=== PATIENT | male | born 1940 | race Caucasian/White ===

== ENCOUNTER 2017-05-14 15:42 | Inpatient (IN) | payer MEDICARE, BC ==
[2017-05-14 16:07] LABS: #Basophils 0.1 thou/uL (0.0-0.2); #Eosinphils 0.2 thou/uL (0.0-0.7); #Lymphocytes 1.7 thou/uL (1.20-3.40); #Monocytes 0.4 thou/uL (0.11-0.59); %Basophils 0.8 % (0.0-1.0); %Eosinophils 3.3 % (0.0-10.0); %Lymphocytes 26.4 % (21.0-51.0); %Monocytes 6.8 % (0.0-10.0); %Neutrophils 62.6 % (42.0-75.0); Hemoglobin 14.5 g/dL (14.0-18.0); Mean Corpuscular HGB CONC 33.4 g/dL (32.0-36.0); Mean Corpuscular Hemoglobin 30.8 pg (27.0-31.0); Mean Corpuscular Volume 92.2 fl (80.0-94.0); Mean Platelet Volume 6.4 fL (7.4-10.4); Platelet Count 188 thou/uL (130-400); RBC Distribution Width 12.1 % (11.5-14.5); Red Blood Cell (RBC) Count 4.69 mill/uL (4.70-6.10); White Blood Cell (WBC) Count 6.3 thou/uL (4.8-10.8)
[2017-05-14 16:13] LABS: INR-International Normal Ratio 1.1; Prothrombin Time 14.8 SEC (12.0-14.7)
[2017-05-14 16:14] LABS: PTT 31.6 SEC (22.9-36.1)
[2017-05-14] MEDS ORDERED: ISOVUE-370 76%-LOCM 1 ML ONE (16:27)
--- NOTE | 2017-05-14 16:31 | CT ---
CT HEAD WITHOUT CONTRAST: 05/14/17 Multiple axial tomograms obtained through the head without IV enhancement. HISTORY: Stroke alert, slurred speech with left arm weakness. No evidence of mass or hemorrhage. No evidence of acute cortical infarct identified. The ventricles are mildly prominent. Mild chronic ischemic white matter change. IMPRESSION: 1. Mild ventriculomegaly. 2. No evidence of acute infarct. Findings relayed to Dr. Rushing at 3:55 p.m. POS: [facility]
[2017-05-14 16:33] LABS: ALT (SGPT) 11 U/L (8-55); AST (SGOT) 16 U/L (5-34); Albumin 3.9 g/dL (3.4-4.8); Alkaline Phosphatase 83 U/L (40-150); Anion Gap 11 mmol/L (10-20); BUN (Urea Nitrogen) 11 mg/dL (8.4-25.7); Bilirubin, Total 0.4 mg/dL (0.2-1.2); CK (CPK) 104 U/L (30-200); CKMB 2.1 ng/mL (0-6.6); Calc. Creatinine Clearance 0 mL/min (70-130); Calcium 9.3 mg/dL (7.8-10.44); Carbon Dioxide 26 mmol/L (23-31); Chloride 97 mmol/L (98-107); Estimated GFR-MDRD 68; Globulin 2.8 g/dL (2.4-3.5); Glucose 119 mg/dL (83-110); Potassium 4.7 mmol/L (3.5-5.1); Protein, Total 6.7 g/dL (5.8-8.1); Sodium 129 mmol/L (136-145); Troponin I Less than 0.010 ng/mL (< 0.028)
--- NOTE | 2017-05-14 19:09 | CT ---
HEAD CTA WITH 3D RENDERING NECK CTA WITH 3D RENDERIN05/14/17 HISTORY: 77-year-old male with left sided weakness. NECK CTA WITH 3D RENDERING: There are some borderline sized mediastinal lymph nodes with some associated calcification, evidence for old granulomatous disease. Great vessel origins appear unremarkable. There are some calcified malina ques involving both distal CCAs and proximal ICAs with less than 50% stenosis of both ICAs, using PHIL CET criteria. Incidental bilateral small neck lymph nodes. Vertebral arteries appear to be symmetric bilaterally without evidence for significant stenosis IMPRESSION: Atherosclerosis with some calcified plaques at the bifurcation regions bilaterally with mild, less th an 50% stenosis of both right and left proximal ICA using NASCET criteria. HEAD CTA WITH 3D RENDERING: There are some calcified plaques in the intracranial, internal carotid arteries without evidence for high grade stenosis or occlusion. Right and left anterior and middle cerebral arteries appear unremar kable. Intracranial vertebral and basilar artery are unremarkable. No evidence of an aneurysm. IMPRESSION: Intracranial internal carotid atherosclerotic disease. No evidence for major branch occlusion. Findings were discussed with Dr. Canales at 5:38 p.m. Code CR POS: [facility]
[2017-05-14 19:33] LABS: Bilirubin Negative (Negative); Blood, Urine Negative (Negative); Clarity CLEAR (Clear); Glucose, Urine (Dipstick) Negative (Negative); Leukocyte Negative (Negative); Nitrite Negative (Negative); Protein, Urine (Dipstick) Trace mg/dL (Neg-Trace); Specific Gravity, Urine 1.022 (1.002-1.036); pH, Urine 7.5 (5.0-9.0)
[2017-05-14] MEDS ORDERED: Aspirin 325 MG TAB ONE (19:50)
[2017-05-14] MEDS ORDERED: Acetaminophen 650 MG Suppository PR PRN (20:34)
[2017-05-14] MEDS ORDERED: hydrALAZINE 20 MG/ML VIAL SLOW IVP PRN (20:34)
[2017-05-14] MEDS ORDERED: Acetaminophen 325 MG TAB PO PRN (20:34)
[2017-05-14] MEDS ORDERED: Labetalol HCl 100 MG/20 ML VIAL SLOW IVP PRN (20:34)
[2017-05-14] MEDS ORDERED: Bisacodyl 5 MG TAB PO PRN (20:34)
[2017-05-14] MEDS ORDERED: Atorvastatin Calcium 10 MG TAB PO SCH (21:00)
[2017-05-14] MEDS ORDERED: Sodium Chloride 0.9% 1,000 ML IV SCH (21:00)
[2017-05-14] MEDS ORDERED: Nicotine 14 MG PATCH TD SCH (21:00)
--- NOTE | 2017-05-14 21:26 | HP ---
PRIMARY CARE PROVIDER: Rodo Palacio M.D. CHIEF COMPLAINT: Weakness. HISTORY OF PRESENT ILLNESS: Mr. Mena is a pleasant 77-year-old gentleman who was seen at [facility] on 05/14/2017. He woke up from sleep between noon and 1:00 p.m. today with a left upper extremity weakness. He also reports that he had weakness in both lower extremities. He and his both deny that there was an y slurring of speech. He denies any chest pain or shortness of breath. He denies any nausea or vomi ting. By the time I saw him, weakness in both lower extremities had resolved. Weakness in the left upper extremity was improving. REVIEW OF SYSTEMS: The following complete review of systems was negative, unless otherwise mentioned in the HPI or below: Constitutional: Weight loss or gain, ability to conduct usual activities. Sk in: Rash, itching. Eyes: Double vision, pain. ENT/Mouth: Nose bleeding, neck stiffness, pain, te nderness. Cardiovascular: Palpitations, dyspnea on exertion, orthopnea. Respiratory: Shortness of breath, wheezing, cough, hemoptysis, fever or night sweats. Gastrointestinal: Poor appetite, abdom inal pain, heartburn, nausea, vomiting, constipation, or diarrhea. Genitourinary: Urgency, frequenc y, dysuria, nocturia. Musculoskeletal: Pain, swelling. Neurologic/Psychiatric: Anxiety, depressio n. Allergy/Immunologic: Skin rash, bleeding tendency. PAST MEDICAL HISTORY: Significant for COPD, hypertension, dyslipidemia, benign prostate hypertrophy, peripheral neuropathy, gait imbalance, depression, multiple TIAs in the past. PAST SURGICAL HISTORY: Significant for cardiac catheterization, exploratory laparotomy in the 1960s for penetrating abdominal trauma, laparoscopic appendectomy, left eye surgery for retinal detachment, right eye surgery for retinal detachment, aortic aneurysm repair, back surgery x2, left hip fracture , status post surgery. ALLERGIES: No known drug allergies. CURRENT MEDICATIONS: Sertraline 100 mg daily, finasteride 5 mg daily, aspirin 81 mg daily, tamsulosi n 0.4 mg daily, isosorbide mononitrate 30 mg daily, gabapentin 300 mg 3 times a day, [place] p.r.n., Ve ntolin 2 puffs 4 times a day. SOCIAL HISTORY: He quit smoking in 2011. However, over the last 2 weeks, he has been smoking 3-5 ci garettes a day. He denies any alcohol use or recreational drug use. FAMILY HISTORY: Significant for coronary artery disease in his father. CODE STATUS: I discussed his code status. He is FULL CODE. His is the surrogate decision make r. PHYSICAL EXAMINATION: GENERAL: Mr. Mena is awake and alert, not in acute distress. VITAL SIGNS: Blood pressure is 120/68, pulse is 69, his breathing at rate of 18, and saturating 98% on room air. He is afebrile. EYES: No scleral icterus. No conjunctival pallor. Pupils are unequal, left pupil larger than right . ENT: Moist mucosal membranes, no oropharyngeal erythema or exudates. NECK: Supple, nontender, normal range of movement. Trachea is midline. RESPIRATORY: Accessory muscles of breathing are not active. Chest wall movements are symmetric bila terally. LUNGS: Clear to auscultation without wheeze, rhonchi or crepitations. CARDIOVASCULAR: S1 and S2 are heard, regular. LUNGS: Peripheral pulses palpable. No carotid bruit, no pericardial rub. ABDOMEN: Soft, nontender, bowel sounds are heard, no hepatomegaly, no splenomegaly. NEUROLOGIC: Unequal pupils as described above. Otherwise cranial nerves II-XII intact. No focal se nsory deficits. Power is 4+/5 in the left upper extremity, 5/5 in the other three extremities. Deep tendon reflexes 2+. Plantar reflexes downgoing bilaterally. MUSCULOSKELETAL: Power in the 4 extremities as described above. SKIN: No rashes or subcutaneous nodules. LYMPHATIC: No cervical lymphadenopathy. PSYCHIATRIC: Normal mood, normal affect. The patient is oriented to person, place, and time. LABORATORY DATA: Mr. Mena's labs and investigations were reviewed. I reviewed his electrocardio gram, which shows normal sinus rhythm, no ST changes to suggest an acute coronary syndrome. I also r eviewed his noncontrast CT scan of the brain, which did not show any acute infarct. CT scan of circl e of [place] with contrast showed intracranial internal carotid atherosclerotic disease, no evidence f or major branch occlusion. He has an unremarkable CBC, INR 1.1, decreased sodium of 129, otherwise u nremarkable comprehensive metabolic profile, normal troponin I and a negative urinalysis. ASSESSMENT AND PLAN: Mr. Mena is a pleasant 77-year-old gentleman who was seen at [facility] on 05/14/2017. His problem list includes: 1. Left upper extremity weakness, improving. Concern is regarding transient ischemic attack. He re ports having multiple transient ischemic attacks in the past. He will be admitted to the hospital fo r further management, including MRI of the brain, 2D echocardiogram and carotid Dopplers. Neurology service will be consulted. He will be continued on aspirin. 2. Hyponatremia: Etiology unclear at this time. We will provide normal saline and recheck. 3. Chronic obstructive pulmonary disease: Appears to be stable. The patient was on home oxygen in the past, but is no longer on home oxygen. 4. Hypertension: Monitor vital signs, titrate antihypertensives as needed. 5. Benign prostatic hypertrophy. Stable, continue home medications. 6. Dyslipidemia: Unclear whether patient is on a statin. Start statin at this time, check fasting lipid profile. Many thanks for allowing me to participate in your patient's care. Please feel free to contact me wi th any questions or concerns. LEVEL OF RISK: High. LEVEL OF COMPLEXITY: High.
[2017-05-14 21:49] VITALS: BMI 28.2
[2017-05-14] MEDS ORDERED: Cetirizine HCl 10 MG TAB PO SCH (23:45)
[2017-05-15 05:48] LABS: #Basophils 0.1 thou/uL (0.0-0.2); #Eosinphils 0.3 thou/uL (0.0-0.7); #Lymphocytes 2.7 thou/uL (1.20-3.40); #Monocytes 0.5 thou/uL (0.11-0.59); %Eosinophils 5.2 % (0.0-10.0); %Lymphocytes 40.8 % (21.0-51.0); %Neutrophils 45.1 % (42.0-75.0); Mean Corpuscular HGB CONC 33.5 g/dL (32.0-36.0); Mean Corpuscular Hemoglobin 30.7 pg (27.0-31.0); Mean Corpuscular Volume 91.6 fl (80.0-94.0); Mean Platelet Volume 6.5 fL (7.4-10.4); Platelet Count 168 thou/uL (130-400); Red Blood Cell (RBC) Count 4.22 mill/uL (4.70-6.10); White Blood Cell (WBC) Count 6.6 thou/uL (4.8-10.8)
[2017-05-15 05:58] LABS: Anion Gap 10 mmol/L (10-20); BUN (Urea Nitrogen) 12 mg/dL (8.4-25.7); Calc. Creatinine Clearance 88 mL/min (70-130); Calcium 8.6 mg/dL (7.8-10.44); Carbon Dioxide 24 mmol/L (23-31); Cardiac Risk 4.3 (Less than 4.5); Chloride 98 mmol/L (98-107); Cholesterol 154 mg/dl (< 200 Desired); Estimated GFR-MDRD 78; Glucose 104 mg/dL (83-110); HDL Cholesterol 36 mg/dL (>60 Neg Risk); LDL Cholesterol, Calculated 103 mg/dL; Potassium 4.4 mmol/L (3.5-5.1); Sodium 128 mmol/L (136-145); Triglycerides 73 mg/dL (Less than 150)
[2017-05-15] MEDS ORDERED: Prevnar 13-Val Conj/PF 0.5 ML SYRINGE IM ONE (09:00)
[2017-05-15] MEDS ORDERED: Enoxaparin Sodium 40 MG/0.4 ML SYRINGE SC SCH (09:00)
[2017-05-15] MEDS ORDERED: Aspirin 325 mg Enteric Coated Tablet PO SCH (09:00)
--- NOTE | 2017-05-15 10:25 | MRI ---
MRI BRAIN WITHOUT CONTRAST: Date: 05/15/17 HISTORY: 77-year-old male with slurred speech and left arm weakness. FINDINGS: Correlation is made with CT brain of previous day. There is a small area of restricted diffusion with decreased signal on ADC maps involving a small por tion of the superficial cortex at the right precentral gyrus consistent with acute infarction. No noemy dence of hemorrhage, midline shift, or abnormal extra-axial fluid collections are seen. There are jennifer nges of cortical atrophy and chronic small vessel ischemic disease. The visualized paranasal sinuses are well aerated. IMPRESSION: Small acute infarction in the right precentral gyrus. POS: [facility]
--- NOTE | 2017-05-15 10:43 | CON ---
DATE OF CONSULTATION: 05/15/2017 CONSULTING PHYSICIAN: Hospitalist Service. IMPRESSION: 1. Transient left upper extremity weakness with no evidence of acute ischemic changes on MRI. 2. Hy perlipidemia. 3. Hypertension. 4. Chronic obstructive pulmonary disease. 5. Gait instability. PLAN: 1. Add Plavix. 2. Carotid ultrasound. 3. Echocardiogram. HISTORY OF PRESENT ILLNESS: Mr. Mena is a 77-year-old man with a past history of multiple medica l problems. He got up last evening about 2:00 or 3:00 in the morning and noticed that his left arm f elt heavy. He was able to stand without any difficulty, did not note any speech changes or heaviness of his face. He is uncertain as to the duration of his symptoms. He came into the emergency room f or evaluation. His initial CT scan of the brain was unremarkable. He has had an MRI of the brain do ne this morning, which I reviewed and has not been read out by Radiology. I do not see any acute isc hemic changes. His vital signs have otherwise been stable. His laboratory studies are unremarkable. He is without any other complaints other than he thought he had a fever last night. PAST MEDICAL HISTORY: As listed above. ALLERGIES: None. SOCIAL HISTORY: No tobacco or alcohol use. FAMILY HISTORY: Noncontributory. MEDICATION LIST: Reviewed. REVIEW OF SYSTEMS: Otherwise, negative. PHYSICAL EXAMINATION: GENERAL: He is a thin elderly man sitting at the bedside, in no distress. VITAL SIGNS: Blood pressure 143/78, pulse 56, respirations 16, temperature 97.5. He has been afebri le since admission. HEENT: Pupils equal and reactive. Conjunctivae clear. Oropharynx clear. NECK: Supple. EXTREMITIES: No cyanosis. NEUROLOGIC: He is alert and cooperative. His speech is fluent and clear. Cranial nerves were intac t. Motor exam showed symmetric strength. There was no fix or drift. No tremor or dysmetria was pre sent. Sensation was equal to light touch. He could stand independently, but he is little bit unstea dy on his feet. No abnormal movements were seen. LABORATORY STUDIES: Were reviewed. SUMMARY: A 77-year-old man who presents with transient left upper extremity weakness. His exam at t his point is unremarkable. His current medication list only reveals aspirin. I would suggest adding Plavix and complete his workup as noted above.
[2017-05-15 15:42] VITALS: BP 124/77; TEMP 97.6
[2017-05-15] MEDS ORDERED: Cetirizine HCl 10 MG TAB PO SCH (21:00)
--- NOTE | 2017-05-15 23:44 | DIS ---
DATE OF ADMISSION: 05/14/2017 DATE OF DISCHARGE: 05/15/2017 DISCHARGE DIAGNOSES: 1. 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 2. Left upper extremity weakness secondary to #1, resolving. 3. Tobacco use. 4. Hyponatremia, chronic. 5. Chronic obstructive pulmonary disease without exacerbation. 6. Hypertension, stable. 7. Dyslipidemia. CONSULTATIONS: Dr. Gomez with Neurology Service. PERTINENT LABORATORY AND X-RAY FINDINGS: Sodium ranged between 128 to 129. LFTs within normal limit s. Total cholesterol 154, triglycerides 73, HDL 36, LDL 103. CBC within normal limits. Urinalysis negative. Urine culture dated 05/14/2017 showed no growth at [address] of the brain without cont rast dated 05/14/2017 showed mild ventriculomegaly without evidence of acute infarct. CT angiogram o f the head and neck dated 05/14/2017 showed atherosclerotic changes of intracranial internal carotid arteries without focal stenosis. MRI of the brain dated 05/15/2017 showed small acute infarct in the right precentral gyrus. A 2D transthoracic echocardiogram dated 05/15/2017 showed ejection fraction of 55%-60%. HOSPITAL COURSE: The patient was admitted to the stroke unit after initially presenting with left up per extremity weakness in the context of known prior TIAs. The patient was initially managed for tra nsient ischemic attack undergoing general stroke protocol including neuro imaging with CT and MRI mod alities. Initial CT imaging of the brain showed no acute infarct; however, MRI imaging showed a smal l acute infarct of the right precentral gyrus. Recommendations per Neurology were to add Plavix 75 m g daily to current aspirin 81 mg daily. The patient was also initiated on Lipitor 20 mg at bedtime. Overall, patient remained clinically stable through the remainder of the hospital course with overal l improved left upper extremity weakness by the time of discharge. Telemetry monitoring showed a sin us mechanism without evidence of acute arrhythmia or dysrhythmia. The patient maintained regular ora l intake, ambulated without assistance or difficulty and otherwise remained clinically stable. I hav e examined the patient at the time of discharge and discussed lab, x-ray, and neuro imaging results w ith the patient and discussed followup instructions. The patient verbalizes understanding and agreem ent with discharge plan. The patient ready for discharge on 05/15/2017. DISCHARGE MEDICATIONS: 1. Ventolin HFA 2 puffs inhaled q.6 hours p.r.n. 2. Enteric-coated aspirin 81 mg 1 tab p.o. daily. 3. Lipitor 20 mg p.o. at bedtime. 4. Zyrtec 10 mg p.o. daily. 5. Plavix 75 mg 1 tab p.o. daily. 6. Finasteride 5 mg p.o. daily. 7. Gabapentin 300 mg p.o. t.i.d. 8. [place] 7.5/325 mg 1 tab p.o. daily p.r.n. 9. Isosorbide mononitrate 30 mg p.o. daily. 10. Sertraline 100 mg p.o. daily. 11. Flomax 0.4 mg p.o. daily. FOLLOWUP: The patient will follow up with his primary care provider, Dr. Rodo Palacio within 7 days of discharge. CONDITION ON DISCHARGE: Stable. ACTIVITY: Ad sylvia. DIET: Heart healthy. CODE STATUS: FULL. DISPOSITION: Home on 05/15/2017.
--- NOTE | 2017-05-17 00:27 | EKG ---
Test Reason : Blood Pressure : / mmHG Vent. Rate : 061 BPM Atrial Rate : 061 BPM P-R Int : 160 ms QRS Dur : 074 ms QT Int : 428 ms P-R-T Axes : 019 080 086 degrees QTc Int : 430 ms Normal sinus rhythm Nonspecific ST abnormality Abnormal ECG Confirmed by PAULINA EGAN ([id number]), associate entertainment editor JONH BURGOS ([id number] on 05/17/2017 12:25:35 AM Referred By: Confirmed By:PAULINA EGAN
== END 2017-05-15 18:19 | disposition home or self-care (01) | DRG 65 ==
LOC: ERS 15:42 → 2SE 21:08
PROVIDERS: ADMIT Internal Medicine; ATTEND Internal Medicine
DX: I10 Essential (primary) hypertension; Z86.73 Personal history of transient ischemic attack (TIA), and cerebral infarction without residual deficits; Z79.51 Long term (current) use of inhaled steroids; F17.210 Nicotine dependence, cigarettes, uncomplicated; J44.9 Chronic obstructive pulmonary disease, unspecified; G62.9 Polyneuropathy, unspecified; G81.94 Hemiplegia, unspecified affecting left nondominant side; E87.1 Hypo-osmolality and hyponatremia; E78.5 Hyperlipidemia, unspecified; Z79.82 Long term (current) use of aspirin; N40.0 Benign prostatic hyperplasia without lower urinary tract symptoms; F32.9 Major depressive disorder, single episode, unspecified; I63.9 Cerebral infarction, unspecified
CPT/HCPCS: 36415; 36416; 70450; 70496; 70498; 70551; 80048; 80053; 80061; 81003; 82550; 82553; 84484; 85025; 85610; 85730; 87086; 90471; 90670; 93005; 93306; 96360; G0009; G8978-GP-CI; G8979-GP-CI; G8980-GP-CI; G8987-GO-CK; G8988-GO-CK; G8989-GO-CK; G8996-GN-CI; G8997-GN-CI; J1650